=== PATIENT | female | born 1960 | race Hispanic/Latino ===

== ENCOUNTER → 2022-01-21 | Outpatient (CLI) | payer OTHER ==
[2022-01-21 09:48] LABS: CREATININE, SERUM 1.72 mg/dL (0.57-1.11)
== END ==
LOC: NM 08:44
PROVIDERS: ATTEND Physician Assistant
DX: C79.51 Secondary malignant neoplasm of bone (principal); Z85.3 Personal history of malignant neoplasm of breast; M89.9 Disorder of bone, unspecified
CPT/HCPCS: 36415; 71046; 72195; 73718 ×2; 78306; 82565; 84520; A9503